=== PATIENT | male | born 1990 | race Caucasian/White ===

== ENCOUNTER → 2022-12-22 | Outpatient (CLI) | payer OTHER | LOC: M PLAIMG 09:26 | PROVIDERS: ATTEND Physician Assistant Medical | DX: R51.9 Headache, unspecified (principal) ==

== ENCOUNTER 2025-02-24 16:13 | Emergency (ER) | payer OTHER ==
[~2025-02-24] VITALS: Ht 172.7 cm; Wt 86.3 kg
[2025-02-24] MEDS: KETOROLAC 60 MG/2 ML VIAL IM ONE (17:50)
[2025-02-24 20:05] VITALS: BP 127/83; TEMP 97.5; O2SAT 100
== END 2025-02-24 20:24 | disposition home or self-care (01) ==
LOC: M ED 16:13 → EDBD 16:13 → M ED 20:24
DX: S46.012A Strain of muscle(s) and tendon(s) of the rotator cuff of left shoulder, initial encounter (principal); S40.012A Contusion of left shoulder, initial encounter; V49.40XA Driver injured in collision with unspecified motor vehicles in traffic accident, initial encounter; M50.30 Other cervical disc degeneration, unspecified cervical region; M48.02 Spinal stenosis, cervical region; Y92.410 Unspecified street and highway as the place of occurrence of the external cause; Y93.89 Activity, other specified; Y99.9 Unspecified external cause status
CPT/HCPCS: 70450; 72040; 72125; 72128; 73030; 73060; 96372; 99284; J1885